=== PATIENT | female | born 1940 | race Caucasian/White ===

== ENCOUNTER 2017-08-07 21:06 | Emergency (ER) | payer MEDICARE, OTHER ==
[2017-08-07 21:12] VITALS: BP 150/72; PULSE 80; RESP 20; TEMP 97.6; O2SAT 98
--- NOTE | 2017-08-07 21:50 | RADRPT ---
EXAM DATE/TIME: 08/07/2017 21:37 [facility] COMPARISON: No previous studies available for comparison. INDICATIONS : Left upper arm pain after patient fell tonight MEDICAL HISTORY : None. SURGICAL HISTORY : None. ENCOUNTER: Initial ACUITY: 1 day PAIN SCORE: 8/10 LOCATION: Left mid-shaft humerus FINDINGS: AP and lateral views of the left humerus were obtained and demonstrate an oblique fracture deformity extending through the scapula with distraction of the fracture fragments of up to a centimeter. The h umerus is intact. There is mild osteopenia. The visualized left ribs appear intact and there is a mary cified granuloma in the left upper lobe. CONCLUSION: 1. Left scapular fracture. 2. The left humerus is intact. Ky Etienne MD on August 07, 2017 at 21:46 Board Certified Radiologist. This report was verified electronically.
[2017-08-07] MEDS ORDERED: HYDR25TA5 PO (21:54)
[2017-08-07] MEDS ORDERED: LISI10TA3 PO (21:54)
[2017-08-07] MEDS ORDERED: SIMV20TA PO (21:54)
[2017-08-07] MEDS ORDERED: ALPR0.5T3 PO (21:54)
[2017-08-07] MEDS ORDERED: ACETAMINOPHEN/CODEINE 300 MG/30 MG TAB PO ONE (22:00)
[2017-08-07] MEDS ORDERED: ONDANSETRON ODT 4 MG TAB PO ONE (22:00)
--- NOTE | 2017-08-07 22:00 | PD ---
HPI Chief Complaint: Injury Time Seen by Provider: 21:37 Travel History International Travel<30 days: No Contact w/Intl Traveler<30days: No Traveled to known affect area: No History of Present Illness HPI Patient is a 76-year-old female who presents to emergency room with complaints of left-sided shoulder/arm pain. Patient reports that she was moving today, reports that she was trying hold open an elevator and reports that she accidently banged her left arm into the elevator door. Patient denies any fall , denies any trauma to the head or neck, denies any loss of consciousness. Patient reports pain with range of motion to her left shoulder. Reports that she currently is not on anticoagulants, denies chest pain/sob. Patient did take 800 mg of ibuprofen prior to coming to the emergency room. PFSH Past Medical History Anxiety: Yes High Cholesterol: Yes Diminished Hearing: No Hypertension: Yes Immunizations Current: Yes Tetanus Vaccination: > 5 Years Influenza Vaccination: No ?: Not Menopausal: Yes Past Surgical History Appendectomy: Yes Other Surgery: Yes (diverticulitis) Social History Alcohol Use: No Tobacco Use: No Substance Use: No Allergies-Medications (Allergen,Severity, Reaction): Coded Allergies: No Known Allergies (Verified Allergy, Unknown, 08/07/17) Reported Meds & Prescriptions Reported Meds & Active Scripts Active Zofran (Ondansetron HCl) 4 Mg Tab 4 Mg PO Q6HR PRN Tylenol-Codeine #3 (Acetaminophen-Codeine) 300-30 mg Tab 1-2 Tab PO Q6H PRN Reported Simvastatin 20 Mg Tab 20 Mg PO DAILY Hydrochlorothiazide 25 Mg Tab 25 Mg PO DAILY Alprazolam 0.5 Mg Tab 0.5 Mg PO Q8H PRN Lisinopril 10 Mg Tab 10 Mg PO DAILY Review of Systems General / Constitutional: No: Fever Eyes: No: Visual changes HENT: No: Headaches Cardiovascular: No: Chest Pain or Discomfort Respiratory: No: Shortness of Breath Gastrointestinal: No: Abdominal Pain Genitourinary: No: Dysuria Musculoskeletal: Positive: Limited ROM (left shoulder), Pain (left shouder) Skin: No Rash Neurologic: No: Weakness Psychiatric: No: Depression Endocrine: No: Polydipsia Hematologic/Lymphatic: No: Easy Bruising Physical Exam Narrative GENERAL: Well-nourished, well-developed patient. SKIN: Focused skin assessment warm/dry. HEAD: Normocephalic. EYES: No scleral icterus. No injection or drainage. NECK: Supple, trachea midline. No JVD or lymphadenopathy. CARDIOVASCULAR: Regular rate and rhythm without murmurs, gallops, or rubs. RESPIRATORY: Breath sounds equal bilaterally. No accessory muscle use. GASTROINTESTINAL: Abdomen soft, non-tender, nondistended. MUSCULOSKELETAL: No cyanosis, or edema. Patient with pain with range of motion to the left shoulder, patient with no obvious deformities, no abrasions, pulses intact, neurovascularly intact. Patient with good range of motion to the left elbow as well as left wrist. Patient with normal range of motion to right upper extremity BACK: Nontender without obvious deformity. No CVA tenderness. Patient with left -sided scapular tenderness on exam Data Data Last Documented VS Vital Signs Date Time Temp Pulse Resp B/P (MAP) Pulse Ox O2 Delivery O2 Flow Rate FiO2 08/07/17 21:12 97.6 80 20 150/72 (98) 98 Orders Orders Humerus (Min 2vws) (08/07/17 ) Ct Shoulder W/O Contrast (08/07/17 ) Ondansetron Odt (Zofran Odt) (08/07/17 22:00) Acetamin-Codeine 300-30 Mg (Tylenol-Code (08/07/17 22:00) Radiology Film Requests (08/07/17 ) Sling And Swathe (08/07/17 ) MDM Medical Decision Making Medical Screen Exam Complete: Yes Emergency Medical Condition: Yes Medical Record Reviewed: Yes Interpretation(s) Vital Signs Date Time Temp Pulse Resp B/P (MAP) Pulse Ox O2 Delivery O2 Flow Rate FiO2 08/07/17 21:12 97.6 80 20 150/72 (98) 98 Differential Diagnosis Shoulder fracture, humerus fracture, scapular fracture Narrative Course During the course of the patients emergency department visit, the patients history, examination, and differential diagnosis were reviewed with the patient. The patient was placed on a diagnostic cardiac sonographer with oximetry and frequent blood pressure monitoring. The patient was initially provided Tylenol No. 3 as well as Zofran Radiology studies were reviewed and remarkable for: X-ray of left humerus showed a left scapular fracture, the left humerus intact. CT of the left shoulder was ordered for further evaluation of scapular fracture. CT of the left shoulder displays a comminuted scapular fracture. A copy patient CT report was given to her discharge. Plan to place patient in swing and swathe, a cd of her ct was given to her as she will need to follow up with her orthopedic surgeon in [place] as she will be returning there shortly. She will return to ER as needed. Patient appreciative of care Diagnosis Primary Impression: Scapular fracture Qualified Codes: S42.102A - Fracture of unspecified part of scapula, left shoulder, initial encounter for closed fracture Patient Instructions: General Instructions, Narcotic given in the ED Additional Instructions: Please provide patient with a copy of their lab work and studies at discharge* * Please follow up with your primary care doctor in 2-3 days Return to the ER if symptoms worsen or progress Return to the ER as needed Please follow-up with your orthopedic surgeon as soon as possible Please bring a copy of her studies including your CT report to your orthopedic surgeons appointment Med/Other Pt SpecificInfo: Prescription(s) given Scripts Ondansetron (Zofran) 4 Mg Tab 4 MG PO Q6HR Y for NAUSEA OR VOMITING, #20 TAB 0 Refills Prov: Sandra Burgos DO 08/07/17 Acetaminophen-Codeine (Tylenol-Codeine #3) 300-30 mg Tab 1-2 TAB PO Q6H Y for PAIN, #12 TAB 0 Refills Prov: Sandra Burgos DO 08/07/17 Disposition: 01 DISCHARGE HOME Condition: Stable Sandra Burgos DO Aug 07, 2017 22:00
--- NOTE | 2017-08-07 22:28 | RADRPT ---
EXAM DATE/TIME: 08/07/2017 21:59 [facility] COMPARISON: No previous studies available for comparison. INDICATIONS : Pain and swelling in the left shoulder after fall. Patient had an abnormal left humerus x-ray exam de monstrating a scapular fracture.. RADIATION DOSE: 19.60 CTDIvol (mGy) MEDICAL HISTORY : None SURGICAL HISTORY : None. ENCOUNTER: Initial ACUITY: 1 day PAIN SCALE: 10/10 LOCATION: Left scapulae TECHNIQUE: Volumetric scanning of the shoulder was performed. Using automated exposure control and adjustment o f the mA and/or kV according to patient size, radiation dose was kept as low as reasonably achievable to obtain optimal diagnostic quality images. DICOM format image data is available electronically f or review and comparison. FINDINGS: A moderately comminuted fracture deformity of the central and inferior scapula is again noted. T here is mild overriding of the distal fracture fragments and adjacent soft tissue swelling. The proxi mal humerus and glenoid are intact. The acromioclavicular joint is intact as well. The coracoclavicul ar distance is within normal limits. The visualized left ribs are intact. There is a calcified granul lisa in the left upper lobe. The clavicle is intact as well. CONCLUSION: Comminuted scapular fracture Ky Etienne MD on August 07, 2017 at 22:23 Board Certified Radiologist. This report was verified electronically.
[2017-08-07] MEDS ORDERED: ZOFR4TAB PO (22:38)
[2017-08-07] MEDS ORDERED: TYLETAB34 PO (22:38)
[2017-08-07 22:51] VITALS: RESP 18
== END 2017-08-07 22:53 | disposition home or self-care (01) ==
LOC: PHEFT 21:06
DX: S42.192A Fracture of other part of scapula, left shoulder, initial encounter for closed fracture (principal); W22.8XXA Striking against or struck by other objects, initial encounter; Y93.89 Activity, other specified
CPT/HCPCS: 29240; 73060; 73200